=== PATIENT | female | born 1970 | race African-American/Black ===

== ENCOUNTER 2017-02-16 19:13 | Emergency (ER) | payer OTHER ==
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
[2017-02-16 19:24] VITALS: BP 135/81; PULSE 56; TEMP 98.5; BMI 38.7
[2017-02-16] MEDS ORDERED: ACETAMINOPHEN 325 MG TABLET (FP) PO ONE (19:53)
[2017-02-16] MEDS ORDERED: ACETAMINOPHEN 325 MG TABLET (FP) ONE (20:04)
[2017-02-16 20:08] LABS: URINE APPEARANCE Clear; URINE BILIRUBIN Negative (NEGATIVE); URINE GLUCOSE (UA) Negative (NEGATIVE); URINE KETONE 1+ (NEGATIVE); URINE LEUK ESTERASE Negative (NEGATIVE); URINE NITRITE Negative (NEGATIVE); URINE PROTEIN Negative (NEGATIVE); URINE UROBILINOGEN 0.2 (0.2-1.0)
[2017-02-16 20:14] LABS: URINE BLOOD Trace-intact (NEGATIVE); URINE COLOR YELLOW
[2017-02-16 20:23] LABS: URINE BACTERIA FEW /hpf (NEGATIVE)
[2017-02-16 20:34] LABS: INR 1.14 (0.82-1.09); PROTHROMBIN TIME (PATIENT) 12.7 SEC (10.2-13.0)
[2017-02-16 20:46] LABS: BASOPHIL 0.5 % (0-2.0); EOSINOPHIL 2.1 % (0-4.5); MCH 29.1 pg (25.7-33.7); MCHC 33.3 g/dl (32.0-36.0); MEAN CELL VOLUME 87.4 fl (80-96); MEAN PLT VOLUME 8.9 fl (7.5-11.1); NEUTROPHILS 45.7 % (42.8-82.8); PLATELET COUNT 222 K/MM3 (134-434); RDW 13.5 % (11.6-15.6); WHITE BLOOD COUNT 7.6 K/mm3 (4.0-10.8)
[2017-02-16 20:50] LABS: ALBUMIN 4.4 g/dl (3.5-5.0); ALK PHOS 55 U/L (32-92); ANION GAP 6 (8-16); BILIRUBIN,TOTAL 0.4 mg/dl (0.2-1.0); CALCIUM 8.9 mg/dl (8.4-10.2); CO2 25 mmol/L (22-28); CPK 272 IU/L (26-192); CREATININE 0.6 mg/dl (0.6-1.3); GLUCOSE,RANDOM 79 mg/dl (74-106); SGOT/AST 29 U/L (10-42); SGPT/ALT 25 U/L (10-40); TOT PROT 7.2 g/dl (6.4-8.3)
[2017-02-16 21:00] LABS: TROPONIN I (DFP) < 0.03 ng/ml (0.03-0.50)
[2017-02-16] MEDS ORDERED: LORATADINE 10 MG TABLET PO ONE (21:52)
[2017-02-16] MEDS ORDERED: LORATADINE 10 MG TABLET ONE (22:01)
--- NOTE | 2017-02-17 13:01 | EKG ---
Test Reason : Blood Pressure : / mmHG Vent. Rate : 057 BPM Atrial Rate : 057 BPM P-R Int : 150 ms QRS Dur : 090 ms QT Int : 508 ms P-R-T Axes : 060 029 048 degrees QTc Int : 494 ms SINUS BRADYCARDIA NONSPECIFIC T WAVE ABNORMALITY PROLONGED QT ABNORMAL ECG NO PREVIOUS ECGS AVAILABLE Confirmed by PONCHO OCHOA MD ([id number]) on 02/17/2017 1:01:19 PM Referred By: LISA MUKHERJEE Confirmed By:PONCHO OCHOA MD
== END 2017-02-16 22:12 | disposition home or self-care (01) ==
LOC: FER 19:13
DX: G43.809 Other migraine, not intractable, without status migrainosus (principal); F41.9 Anxiety disorder, unspecified; E04.2 Nontoxic multinodular goiter; E05.90 Thyrotoxicosis, unspecified without thyrotoxic crisis or storm
CPT/HCPCS: 36415; 80053; 81003; 81015; 82550; 82553; 84484; 84703; 85025; 85610; 93005; 99281-25

== ENCOUNTER → 2017-12-19 | Day surgery (SDC) | payer OTHER ==
--- NOTE | 2017-12-22 19:10 | OP ---
DATE OF OPERATION: 12/19/2017 PREOPERATIVE DIAGNOSIS: Right breast mass 1 o'clock 1 cm from the nipple and right breast mass 1 o'clock 4 cm from the nipple. PROCEDURE: Right ultrasound guided core biopsies with clip placements. ANESTHESIA: Local. ATTENDING SURGEON: Choco Valentin MD ESTIMATED BLOOD LOSS: Minimal. COMPLICATIONS: None. DESCRIPTION OF PROCEDURE: The patient was made aware of the risks and benefits of the surgery and consented. She was placed in a supine position, and under sterile conditions and 1% lidocaine for local anesthesia, a small kelly was made in the skin. The right 1 o'clock lesion 1 cm from the nipple was approached first. Using a 10-gauge suction biopsy via the superolateral approach under ultrasound guidance, multiple cores were obtained and submitted to Pathology. Likewise, under ultrasound guidance, a bow tie clip was placed into the biopsy region. Steri-Strips and a sterile bandage was applied. Next, the right 1 o'clock 4 cm from the nipple lesion was approached. Under sterile conditions with 1% lidocaine for local anesthesia, a small kelly was made in the skin. Using a 10-gauge suction biopsy via the superolateral approach under ultrasound guidance, multiple cores were obtained and submitted to Pathology. Likewise, under ultrasound guidance, a U-shaped clip was placed into the biopsy region. Steri-Strips and sterile dressing was then applied. Manual pressure was applied for hemostasis, and the patient having tolerated the procedure well was discharged home. We will call her with results. CHOCO VALENTIN M.D. [id number]
== END | disposition home or self-care (01) ==
LOC: FRADUS-SUR 12:25
PROVIDERS: ATTEND Surgery Surgical Oncology
PROC: 0HBT3ZX Excision of Right Breast, Percutaneous Approach, Diagnostic (ICD-10-PCS; principal; 2017-12-19)
DX: D05.11 Intraductal carcinoma in situ of right breast (principal); N64.1 Fat necrosis of breast; N64.89 Other specified disorders of breast; N63.12 Unspecified lump in the right breast, upper inner quadrant; R92.1 Mammographic calcification found on diagnostic imaging of breast
CPT/HCPCS: 19083; 19084; 77065-TC; 87899; 88305-TC; 88341-TC; 88342-TC; A4648

== ENCOUNTER → 2017-12-30 | Day surgery (SDC) | payer OTHER ==
--- NOTE | 2017-12-31 00:20 | OP ---
DATE OF OPERATION: 12/30/2017 PREOPERATIVE DIAGNOSIS: Right axillary adenopathy. POSTOPERATIVE DIAGNOSIS: Right axillary adenopathy. PROCEDURE: Right axillary lymph node, ultrasound guided core biopsy with clip placement. ANESTHESIA: Local. ATTENDING SURGEON: Choco Valentin M.D. ESTIMATED BLOOD LOSS: Minimal. COMPLICATIONS: None. DESCRIPTION OF PROCEDURE: Patient was made aware of the risks and benefits of the procedure and consented. She was placed in the supine position under sterile conditions with 1% lidocaine for local anesthesia. A small kelly was made on the skin. Using a 13-gauge suction biopsy device via inferolateral approach, multiple cores were obtained and submitted to pathology. Likewise under ultrasound guidance, a clip was placed into the biopsy region. Well tolerated by patient. Steri-Strip and sterile bandage was applied. We will contact her with the results. CHOCO VALENTIN M.D. [id number]
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
--- NOTE | 2018-01-02 14:26 | PATH ---
Surgical Pathology Report Patient Name: ANNELISE PUTNAM [facility]. Rec. #: [id number] /Age/Gender: 1970 (Age: 47) / F Account: [id number] Location: [facility] Taken: 12/30/2017 Received: 12/30/2017 Reported: 01/02/2018 Physicians: Tito Burton M.D. Specimen(s) Received RIGHT AXILLARY NODE CORE BIOPSY Clinical History Axillary lymph node Final Diagnosis AXILLARY LYMPH NODE, RIGHT, CORE BIOPSY: FRAGMENTS OF LYMPH NODE WITH MILD FOLLICULAR AND PARACORTICAL HYPERPLASIA. NO DETECTABLE INVOLVEMENT BY LYMPHOMA. NO EVIDENCE OF METASTATIC CARCINOMA. SEE COMMENT. Comment: Histologic sections show fragments of fibroadipose and lymphoid tissue with preserved architecture. Follicles with germinal center formation are present. Significant cytologic atypia is not seen. Immunostains demonstrate normal distribution of B-cells and T-cells; aberrant immunoprofiles are not seen. History of DCIS noted ([id number]). This case was sent to Dr. Cole Okeefe from [facility], [place], [place] ([id number]) the diagnosis above reflects his opinion. Immunostains performed: CD20...B-cells positive PAX-5...B-cells positive CD3...T-cells positive CD5...T-cells positive CD10..Germinal centers positive BCL-6..Germinal centers positive BCL-2..Germinal centers negative BCL-1..Negative [place] (LIZETH)..Subset of plasma cells positive Lambda (LIZETH)..Subset of plasma cells positive AE1/AE3...Negative CAM 5.2..Negative LAWRENCE..Negative MUM-1..Plasma cells and subset of B-cells positive See [facility] report for additional details ([id number]). Electronically Signed Cristin Mills M.D. Gross Description Received in formalin labeled "right axillary lymph node" are 4 hurtado-yellow, cylindrical portions of fibroadipose tissue ranging from 0.5-0.8 cm in length and averaging 0.3 cm diameter. The specimens are submitted in toto in one cassette. Total formalin fixation time: Between 6-7 hours. SErik/12/30/2017 alpa/12/30/2017
== END | disposition home or self-care (01) ==
LOC: FRADUS-SUR 11:38
PROVIDERS: ATTEND Surgery Surgical Oncology
PROC: 07B53ZX Excision of Right Axillary Lymphatic, Percutaneous Approach, Diagnostic (ICD-10-PCS; principal; 2017-12-30)
PROC: BH47ZZZ Ultrasonography of Upper Extremity (ICD-10-PCS; 2017-12-30)
DX: R59.9 Enlarged lymph nodes, unspecified (principal)
CPT/HCPCS: 38505; 76942-TC; 87899; 88305-TC; A4648

== ENCOUNTER 2018-01-20 11:00 | Inpatient (IN) | payer OTHER ==
[2018-01-09 15:05] VITALS: BMI 35.5
--- NOTE | 2018-01-19 09:28 | HP ---
Admitting History and Physical - Primary Care Physician PCP: dilip - Admission Chief Complaint: right breast cancer History of Present Illness: Patient is a 47 yo female who was noted to have calcifications in the right breast extending over an area of at least 8 cm centrally. Patient underwent an US which showed a hypoechoic mass vs cystic mass at one o'clock. Patient underwent an US guided core bx which was positive for DCIS. Patient had an MRI which was c/w known cancer as well as a suspicious right axillary lymph node. Biopsy of the lymph node was negative for malignancy. The patient is now presenting for bilateral mastectomy with reconstruction and right snbx. l History Source: Patient - Past Medical History ...LMP Comment: S/P MARIO Endocrine: Yes: Hyperthyroidism - Smoking History Smoking history: Never smoked Have you smoked in the past 12 months: No Aproximately how many cigarettes per day: 0 - Alcohol/Substance Use Hx Alcohol Use: Yes (SOCIAL) Home Medications - Allergies Allergies/Adverse Reactions: Allergies Allergy/AdvReac Type Severity Reaction Status Date / Time citalopram hydrobromide AdvReac Intermediate Weight gain Verified 02/16/17 19:17 [From Celexa] - Home Medications Home Medications: Ambulatory Orders Methimazole 5 mg PO DAILY #0 08/12/13 Family Disease History - Family Disease History Family History: Unremarkable Review of Systems - Review of Systems Constitutional: reports: No Symptoms Cardiovascular: reports: No Symptoms Respiratory: reports: No Symptoms Physical Examination Constitutional: Yes: Well Nourished, Calm Breast(s): Yes: Other (large ptotic double D-cup breasts with slight retraction on the medial aspect of the right nipple areolar complex. Right 1 oclock slight nodularity around the periareolar 1 oclock region of the right breast. No suspicious adenopathy noted bilaterally) Problem List - Problems (1) Breast cancer, right breast Code(s): C50.911 - MALIGNANT NEOPLASM OF UNSP SITE OF RIGHT FEMALE BREAST Qualifiers: Breast location: overlapping sites of breast Assessment/Plan Bilateral mastectomy with right sentinel node biopsy, lymphoscintogram, possible axillary node dissection, reconstruction
[2018-01-20] MEDS ORDERED: ceFAZolin SODIUM 1 GM VIAL ONE ×2 (13:52→14:42)
[2018-01-20] MEDS ORDERED: GENTAMICIN SO4 80 MG/2 ML VIAL ONE (13:52)
[2018-01-20] MEDS ORDERED: ISOSULFAN BLUE 10 MG/ML VIAL SQ ONE (13:53)
[2018-01-20] MEDS ORDERED: fentaNYL CITRATE 250 MCG/5 ML VIAL ONE (14:04)
[2018-01-20] MEDS ORDERED: MIDAZOLAM HCL 2 MG/2 ML SINGLE DOSE VIAL ONE (14:04)
[2018-01-20] MEDS ORDERED: ROCURONIUM BROMIDE 50 MG/5 ML VIAL ONE ×2 (14:04→15:29)
[2018-01-20] MEDS ORDERED: SUCCINYLCHOLINE CHLORIDE 200 MG/10 ML VIAL ONE (14:04)
[2018-01-20] MEDS ORDERED: PROPOFOL 20 ML ONE (14:04)
[2018-01-20] MEDS ORDERED: DEXAMETHASONE SOD PHOSPHATE 4 MG/1 ML VIAL ONE (14:05)
[2018-01-20] MEDS ORDERED: LIDOCAINE HCL/PF 2% SDV 5ML VIAL ONE (14:05)
[2018-01-20] MEDS ORDERED: ONDANSETRON 4 MG/2 ML VIAL ONE ×2 (14:05→17:25)
[2018-01-20] MEDS ORDERED: BUPIVACAINE LIPOSOME/PF (EXPAREL) 266 MG/20 ML VIAL ONE (14:46)
[2018-01-20] MEDS ORDERED: ePHEDrine SULFATE 50 MG/1 ML AMPULE ONE (15:16)
[2018-01-20] MEDS ORDERED: oxyCODONE HCL 5 MG TABLET PO PRN ×3 (16:54→17:21)
[2018-01-20] MEDS ORDERED: GLYCOPYRROLATE 0.2 MG/1 ML VIAL ONE (17:14)
[2018-01-20] MEDS ORDERED: NEOSTIGMINE METHYLSULFATE 0.5 MG/ML - 10 ML MDV ONE (17:14)
[2018-01-20] MEDS ORDERED: ONDANSETRON 4 MG/2 ML VIAL IVPUSH PRN (17:21)
[2018-01-20] MEDS: ONDANSETRON 4 MG/2 ML VIAL IVPUSH PRN (17:50)
[2018-01-20] MEDS ORDERED: PROMETHAZINE HCL 25 MG/1 ML VIAL IVPUSH ONE (18:07)
--- NOTE | 2018-01-20 19:36 | SURG ---
Surgery Process Safety Engineer Note Process Safety Engineer: Jm Torres PA-C Date of Service: 01/20/18 Diagnosis: Right breast DCIS Procedure: Bilateral mastectomy, right sentinel lymph node biopsy and reconstruction with tissue expanders I was present for the entirety of the operative procedure. For further detail, please refer to operative report. Visit type - Case Type Case Type: Scheduled - New patient This patient is new to me today: Yes Date on this admission: 01/20/18
--- NOTE | 2018-01-20 19:54 | OP ---
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 PROCEDURE: Bilateral total mastectomy with right axillary sentinel lymph node biopsy and bilateral AirXpanders reconstruction. ANESTHESIA: General endotracheal anesthesia. PRIMARY SURGEON: Ernst Goodwin MD FLASH WELDING MACHINE OPERATOR: STEPHEN Mcfarland Primary surgeon for the bilateral AirXpanders subpectoral reconstruction is Dr. Ernst Wilde. There were no complications. Briefly, the patient is a 47-year-old, G3, P3, premenopausal female of /[place] descent. She underwent a recent mammography on December 02, 2017, showing highly-suspicious central pleomorphic calcifications in the right breast extending over an area of 8 cm. She underwent stereotactic core biopsies in the right breast, 2 separate areas at the 1 o'clock region, 1 cm and 4 cm from the nipple. Both came back with intermediate to high-grade DCIS, which is ER/ND strongly positive. She underwent an MRI on December 25, 2017, showing extensive enhancement measuring at least 10 cm in length associated with these calcifications on mammography. The patient was advised on undergoing a mastectomy on the right side and chose to have prophylactic mastectomy on the left. She was seen by Plastic Surgery and personal secretary reconstruction was advised. She was told of the use of AirXpanders in her case. She was brought in for the procedure at [facility] on January 20, 2018. She first underwent a lymphoscintigraphy at [facility] and was brought to the [facility] holding area. In the holding area, site verification was made and informed consent was obtained. She was marked preoperatively by the plastic surgeon. She was brought in to the operating room and laid on the OR table in a supine position. Venodynes were placed on the lower extremities. She received 2 g of Ancef prior to incision. She underwent general endotracheal anesthesia. Both breasts were sterilely prepped and draped in the usual fashion and a timeout was performed. The right axillary sentinel lymph node biopsy was first performed. Incision was made just below the hair-bearing area of the right axilla. We did inject 3 mL of Lymphazurin blue around the periareolar right breast nipple-areolar complex prior to the incision. We did see blue lymphatics coursing through a blue hot lymph node in the level 1 region of the right axilla with a 10-second gamma count of 2420. Background count after removal of this node was 166. No other blue or not nodes were found after removal of this node, and frozen section came back negative, so no further nodes were removed. At this point, the right mastectomy was performed using an elliptical incision encompassing the entire nipple-areolar complex. A reduction skin-sparing mastectomy was performed. Skin flaps were raised superiorly to the level of the clavicle, medially to the level of the sternum, laterally to the level of the latissimus, and inferiorly below the level of the inframammary fold. The breast was taken down off the pectoralis major muscle using electrocautery from medial to lateral, completely removed intact. It was oriented with a long lateral and short superior suture and weighed to allow for appropriate cosmetic result. X-ray of the specimen showed removal of the 2 clips and all of the calcification. A separate anterior margin was taken on the superior flap, with the suture margin in biopsy cavity side. Hemostasis was achieved and the wound was copiously irrigated with warm sterile saline. At this point, the left mastectomy was performed prophylactically. Separate instruments were used, and again a skin-sparing reduction mastectomy was performed, encompassing the entire nipple-areolar complex through an elliptical pattern. Skin flaps were raised using the PEAK radiofrequency device, superiorly to the level of the clavicle, medially to the level of the sternum, laterally to the level of the latissimus, and inferiorly below the level of the inframammary fold. The breast was taken down off the pectoralis major muscle, from medial to lateral, completely removed intact. It was oriented with a long lateral and short superior suture and weighed to allow for appropriate cosmetic result. Hemostasis was achieved and the wound was copiously irrigated with warm sterile saline. Both breasts were sent down to Pathology in formalin as left and right breast. At this point, Dr. Wilde became the primary surgeon, performing bilateral personal secretary reconstructions in the subpectoral location. AlloDerm was sutured into the inferolateral aspects of both pectoralis major muscles to allow for the personal secretary reconstruction. AirXpander implants were placed. Two drains will be placed around each implant, brought out through separate stab incisions on the lateral skin flaps and secured in place using 3-0 nylon suture. Exparel local anesthesia was given into the chest wall muscles of both pectoralis major muscles to allow for postoperative pain control. All wounds will be closed by Plastic Surgery using interrupted 3-0 PDS suture and a running 4-0 subcuticular PDS suture. Mastisol and Steri-Strips will be applied over the wound, and she will be extubated and recovered in the post-anesthesia care unit and admitted postoperatively for pain and wound management. Again, all sponge and needle counts were correct at the end of the case. Estimated blood loss was about 100 mL. She was hemodynamically stable throughout. ERNST GOODWIN M.D. MARY [id number]
[2018-01-20] MEDS: CEFAZOLIN 1 GM/D5W 1 GM/50 ML BAG IVPB SCH (20:22)
[2018-01-20] MEDS: oxyCODONE HCL 5 MG TABLET PO PRN (20:42)
[2018-01-20] MEDS: ACETAMINOPHEN 325 MG TABLET (FP) PO PRN (20:42)
[2018-01-20] MEDS ORDERED: ZOLPIDEM TARTRATE 5 MG TABLET PO PRN (22:00)
[2018-01-21] MEDS: CEFAZOLIN 1 GM/D5W 1 GM/50 ML BAG IVPB SCH ×4 (03:18→21:42)
[2018-01-21] MEDS: oxyCODONE HCL 5 MG TABLET PO PRN ×3 (03:18→13:16)
[2018-01-21] MEDS: ACETAMINOPHEN 325 MG TABLET (FP) PO PRN ×2 (03:19→13:17)
[2018-01-21 08:11] LABS: HEMATOCRIT 32.3 % (32.4-45.2); HEMOGLOBIN 10.6 GM/dl (10.7-15.3); MCH 28.4 pg (25.7-33.7); MCHC 32.9 g/dl (32.0-36.0); MEAN CELL VOLUME 86.3 fl (80-96); PLATELET COUNT 209 K/MM3 (134-434); RBC 3.74 M/mm3 (3.60-5.2); RDW 15.4 % (11.6-15.6); WHITE BLOOD COUNT 11.2 K/mm3 (4.0-10.8)
[2018-01-21] MEDS: HEPARIN NA (PORCINE) 5,000 UNITS/ML 1ML VIAL SQ SCH ×2 (08:27→21:42)
[2018-01-21] MEDS: ONDANSETRON 4 MG/2 ML VIAL IVPUSH PRN (08:27)
--- NOTE | 2018-01-21 08:47 | PN ---
Progress Note, Physician Chief Complaint: Right breast cancer S/P bilateral total mastectomies right sentenel node biopsy coal loader and alloderm reconstruction History of Present Illness: patient is OOB eating , spirometry, pain managed with oxycodone,tylenol prn - Current Medication List Current Medications: Active Medications Acetaminophen (Tylenol -) 650 mg PO Q4H PRN PRN Reason: PAIN LEVEL 1 - 3 Last Admin: 01/21/18 03:19 Dose: 650 mg Heparin Sodium (Porcine) (Heparin -) 5,000 unit SQ BID@0800,2000 [facility] Last Admin: 01/21/18 08:27 Dose: 5,000 unit Cefazolin Sodium (Ancef 1 Gm Premixed Ivpb -) 1 gm in 50 mls @ 100 mls/hr IVPB Q6H-IV [facility] Stop: 01/27/18 20:59 Last Admin: 01/21/18 08:27 Dose: 100 mls/hr Dextrose/Sodium Chloride (D5-1/2ns -) 1,000 mls @ 100 mls/hr IV ASDIR [facility] Lactated Ringer's (Lactated Ringers Solution) 1,000 mls @ 75 mls/hr IV ASDIR [facility] Methimazole (Tapazole -) 5 mg PO DAILY [facility] Ondansetron HCl (Zofran Injection) 4 mg IVPUSH Q6H PRN PRN Reason: NAUSEA AND/OR VOMITING Last Admin: 01/21/18 08:27 Dose: 4 mg Oxycodone HCl (Roxicodone -) 5 mg PO Q4H PRN PRN Reason: PAIN LEVEL 4 - 6 Oxycodone HCl (Roxicodone -) 10 mg PO Q4H PRN PRN Reason: PAIN LEVEL 7-10 Last Admin: 01/21/18 03:18 Dose: 10 mg Zolpidem Tartrate (Ambien -) 5 mg PO HS PRN PRN Reason: Insomnia - Objective Vital Signs: Vital Signs Temperature 99.2 F 01/21/18 06:00 Pulse Rate 72 01/21/18 06:00 Respiratory Rate 18 01/21/18 06:00 Blood Pressure 120/52 L 01/21/18 06:00 O2 Sat by Pulse Oximetry (%) 98 01/21/18 06:00 Constitutional: Yes: No Distress Breast(s): Yes: Other (Bilateral flaps viable no echymosis,incisions intact with steristrips EDUARDO drains functioning, dressings changed) Labs: CBC, BMP 01/21/18 07:41 Problem List - Problems (1) Breast cancer, right breast Code(s): C50.911 - MALIGNANT NEOPLASM OF UNSP SITE OF RIGHT FEMALE BREAST Qualifiers: Breast location: overlapping sites of breast Patient sex: female Assessment/Plan continue IV antibiotics oxycodone ,tylenol prn spirometry SCD hepatin SQ VNS to be arranged
[2018-01-21] MEDS: METHIMAZOLE 5 MG TABLET (FP) PO SCH (09:39)
--- NOTE | 2018-01-21 10:27 | PN ---
Progress Note (short form) - Note Progress Note: 47F POD1 s/p bilateral mastectomy with reconstruction under GA-ETT. Pt s/o moderate pain, and also of nausea. Pt denies any anesthetic complications. Continue current regimen.
[2018-01-21] MEDS: LACTATED RINGERS SOLUTION 1,000 ML IV SCH ×2 (10:59→17:56)
[2018-01-21] MEDS: DEXTROSE 5%-0.45% SALINE 1,000 ML IV SCH ×2 (10:59→17:56)
[2018-01-21] MEDS ORDERED: diazePAM 2 MG TABLET PO PRN (17:22)
--- NOTE | 2018-01-21 18:07 | PN ---
Progress Note (short form) - Note Progress Note: POD#1 Pt with slight nausea/no emesis. Had some tingling in her RUE which has improved. OOB and ambulating in the hallways. Vital Signs Period Temp Pulse Resp BP Sys/Cueto Pulse Ox Last 24 Hr 97.7 F-99.2 F 62-76 16-18 112-126/51-63 96-100 EDUARDO-left-75 ml serosangrneous left chest-105ml serosangrenous Right-180 sangrenous and eight chest-120ml sangrenous Chest: steri-strips c/d/i. Skin flaps with good capillary refill b/l and warm to touch. CBC, BMP 01/21/ 07:41 A/P: 47 yo female s/p b/l mastectomy with reconstruction tissue expanders Continue diet as tolerated Added Valium for pain relief/muscle spasm OOB ambulate and Incentive spirometer Heparin SQ for DVT ppx IV abx D/w Dr. Wilde
[2018-01-22] MEDS: CEFAZOLIN 1 GM/D5W 1 GM/50 ML BAG IVPB SCH ×3 (03:27→14:58)
[2018-01-22] MEDS: oxyCODONE HCL 5 MG TABLET PO PRN ×2 (05:07→20:08)
--- NOTE | 2018-01-22 07:00 | PN ---
Progress Note (short form) - Note Progress Note: POD #2 Alert. Supine with HOB at 30 degrees. States she had a hard time sleeping last night 2/2 pain. C/o RUE tingling yesterday...resolved. She is oob and ambulating hallways unassisted. Voiding spontaneously. Tolerating PO diet. Denies n/v/f/c, CP or SOB. Last Vital Signs Temp Pulse Resp BP Pulse Ox 98.3 F 62 16 115/50 L 98 18 02:00 01/22/18 02:00 01/22/18 02:00 01/22/18 02:00 01/21/18 14:14 Gen: alert. nad Chest: Steri strips intact. No hematoma. Flaps viable as evidenced by good cap refill, warm. EDUARDO output --> Lt 85 & 115 (serous), Rt 140 & 175 (serous) LE: SCDs bilat. Soft. NT. No edema. Problem List - Problems (1) Breast cancer, right breast Assessment/Plan: POD #2 s/p bilateral mastectomies, right sentinel LN biopsy with tissue vehicle maintenance supervisor reconstruction. Cont diet as tolerated Valium for pain relief/muscle spasm OOB ambulate Incentive spirometer Heparin SQ for DVT ppx IV abx Monitor/record drain output Above plan discussed with Dr. Wilde who agrees. Code(s): C50.911 - MALIGNANT NEOPLASM OF UNSP SITE OF RIGHT FEMALE BREAST Qualifiers: Breast location: overlapping sites of breast Patient sex: female
[2018-01-22] MEDS: HEPARIN NA (PORCINE) 5,000 UNITS/ML 1ML VIAL SQ SCH ×2 (08:28→20:09)
[2018-01-22] MEDS: METHIMAZOLE 5 MG TABLET (FP) PO SCH (09:21)
--- NOTE | 2018-01-22 10:28 | PN ---
Progress Note, Physician Chief Complaint: Right breast cancer S/P bilateral total mastectomies right sentenel node biopsy alloderm catcher helper reconstruction POD #2 History of Present Illness: patient is OOb eating, no nausea or vomiting, pain controlled with oxycodone , valium,tylenol prn,plan for discharge tomorrow with VNS - Current Medication List Current Medications: Active Medications Acetaminophen (Tylenol -) 650 mg PO Q4H PRN PRN Reason: PAIN LEVEL 1 - 3 Last Admin: 01/21/18 13:17 Dose: 650 mg Diazepam (Valium -) 2 mg PO Q8H PRN PRN Reason: MUSCLE SPASMS Last Admin: 01/21/18 18:29 Dose: 2 mg Heparin Sodium (Porcine) (Heparin -) 5,000 unit SQ BID@0800,2000 [facility] Last Admin: 01/22/18 08:28 Dose: 5,000 unit Cefazolin Sodium (Ancef 1 Gm Premixed Ivpb -) 1 gm in 50 mls @ 100 mls/hr IVPB Q6H-IV [facility] Stop: 01/27/18 20:59 Last Admin: 01/22/18 09:21 Dose: 100 mls/hr Dextrose/Sodium Chloride (D5-1/2ns -) 1,000 mls @ 100 mls/hr IV ASDIR [facility] Last Admin: 01/21/18 17:56 Dose: Not Given Lactated Ringer's (Lactated Ringers Solution) 1,000 mls @ 75 mls/hr IV ASDIR [facility] Last Admin: 01/21/18 17:56 Dose: Not Given Methimazole (Tapazole -) 5 mg PO DAILY [facility] Last Admin: 01/22/18 09:21 Dose: 5 mg Ondansetron HCl (Zofran Injection) 4 mg IVPUSH Q6H PRN PRN Reason: NAUSEA AND/OR VOMITING Last Admin: 01/21/18 08:27 Dose: 4 mg Oxycodone HCl (Roxicodone -) 5 mg PO Q4H PRN PRN Reason: PAIN LEVEL 4 - 6 Oxycodone HCl (Roxicodone -) 10 mg PO Q4H PRN PRN Reason: PAIN LEVEL 7-10 Last Admin: 01/22/18 05:07 Dose: 10 mg Zolpidem Tartrate (Ambien -) 5 mg PO HS PRN PRN Reason: Insomnia - Objective Vital Signs: Vital Signs Temperature 99.8 F H 01/22/18 06:00 Pulse Rate 72 01/22/18 06:00 Respiratory Rate 19 01/22/18 06:00 Blood Pressure 108/56 L 01/22/18 06:00 O2 Sat by Pulse Oximetry (%) 99 01/22/18 07:07 Constitutional: Yes: No Distress Breast(s): Yes: Other (Bilateral flaps viable and warm, steristrips in place , no signs of hematoma or infection EDUARDO drains funtioning well,dressing changed) Labs: CBC, BMP 01/21/18 07:41 Problem List - Problems (1) Breast cancer, right breast Code(s): C50.911 - MALIGNANT NEOPLASM OF UNSP SITE OF RIGHT FEMALE BREAST Qualifiers: Breast location: overlapping sites of breast Patient sex: female Assessment/Plan cont Iv antibiotics SCD, heparin SQ ambulation,spirometry oxycocone ,valium,tylenol prn pain Visiting nurse service
[2018-01-22] MEDS ORDERED: MAGNESIUM HYDROX 2400MG/30ML ORAL SUSPENSION 30 ML CUP PO PRN (10:57)
[2018-01-22] MEDS: DEXTROSE 5%-0.45% SALINE 1,000 ML IV SCH (16:29)
[2018-01-22] MEDS: LACTATED RINGERS SOLUTION 1,000 ML IV SCH (16:29)
[2018-01-22] MEDS: CEPHALEXIN MONOHYDRATE 500 MG CAPSULE (UD) PO SCH (21:57)
[2018-01-23] MEDS: oxyCODONE HCL 5 MG TABLET PO PRN ×2 (02:45→16:23)
[2018-01-23] MEDS ORDERED: METHIMAZOLE 5 MG TABLET (FP) PO SCH (07:00)
[2018-01-23] MEDS: HEPARIN NA (PORCINE) 5,000 UNITS/ML 1ML VIAL SQ SCH (08:19)
--- NOTE | 2018-01-23 09:27 | PN ---
Progress Note, Physician Chief Complaint: Right breast cancer S/P Bilateral total mastectomies right sentenel node biopsy alloderm air expanders History of Present Illness: patient is OOb eating , still breast tenderness and tenseness bilaterally and she has air expanders in place, discussed with Dr Goodwin and Dr Wilde - Current Medication List Current Medications: Active Medications Acetaminophen (Tylenol -) 650 mg PO Q4H PRN PRN Reason: PAIN LEVEL 1 - 3 Last Admin: 01/21/18 13:17 Dose: 650 mg Cephalexin HCl (Keflex -) 500 mg PO BID [facility] Last Admin: 01/22/18 21:57 Dose: 500 mg Diazepam (Valium -) 2 mg PO Q8H PRN PRN Reason: MUSCLE SPASMS Last Admin: 01/21/18 18:29 Dose: 2 mg Heparin Sodium (Porcine) (Heparin -) 5,000 unit SQ BID@0800,2000 [facility] Last Admin: 01/23/18 08:19 Dose: 5,000 unit Dextrose/Sodium Chloride (D5-1/2ns -) 1,000 mls @ 100 mls/hr IV ASDIR [facility] Last Admin: 01/22/18 16:29 Dose: Not Given Lactated Ringer's (Lactated Ringers Solution) 1,000 mls @ 75 mls/hr IV ASDIR [facility] Last Admin: 01/22/18 16:29 Dose: Not Given Magnesium Hydroxide (Milk Of Magnesia -) 30 ml PO Q8H PRN PRN Reason: INDIGESTION Methimazole (Tapazole -) 5 mg PO DAILY@0700 [facility] Last Admin: 01/23/18 06:34 Dose: 5 mg Ondansetron HCl (Zofran Injection) 4 mg IVPUSH Q6H PRN PRN Reason: NAUSEA AND/OR VOMITING Last Admin: 01/21/18 08:27 Dose: 4 mg Oxycodone HCl (Roxicodone -) 5 mg PO Q4H PRN PRN Reason: PAIN LEVEL 4 - 6 Oxycodone HCl (Roxicodone -) 10 mg PO Q4H PRN PRN Reason: PAIN LEVEL 7-10 Last Admin: 01/23/18 02:45 Dose: 10 mg Zolpidem Tartrate (Ambien -) 5 mg PO HS PRN PRN Reason: Insomnia - Objective Vital Signs: Vital Signs Temperature 99.1 F 11/02/18 06:00 Pulse Rate 63 01/23/18 06:00 Respiratory Rate 18 01/23/18 06:00 Blood Pressure 123/56 L 01/23/18 06:00 O2 Sat by Pulse Oximetry (%) 97 01/23/18 06:00 Constitutional: Yes: No Distress Breast(s): Yes: Other (Bilateral viable warm flaps incision intact with steristrips no signs of infection , Bilateral tenseness and tenderness which can be due to trim crew supervisor cartrage according to Dr Wilde, no echymosis no signs of expanding hematoma) Labs: CBC, BMP 01/21/18 07:41 Problem List - Problems (1) Breast cancer, right breast Code(s): C50.911 - MALIGNANT NEOPLASM OF UNSP SITE OF RIGHT FEMALE BREAST Qualifiers: Breast location: overlapping sites of breast Patient sex: female Assessment/Plan continue oxycodone ,tylenol, valium prn pain SCD, heparin SQ EDUARDO Training VNS Patient is ready for discharge today per Dr Wilde and Buddy and will follow up next week
[2018-01-23] MEDS: CEPHALEXIN MONOHYDRATE 500 MG CAPSULE (UD) PO SCH (09:54)
[2018-01-23] MEDS: ACETAMINOPHEN 325 MG TABLET (FP) PO PRN ×2 (09:55→16:23)
[2018-01-23 14:23] VITALS: BP 107/48; PULSE 66; TEMP 99
--- NOTE | 2018-01-27 14:20 | PATH ---
Surgical Pathology Report Patient Name: ANNELISE PUTNAM Med. Rec. #: [id number] /Age/Gender: 1970 (Age: 47) / F Account: [id number] Location: [facility] Taken: 01/20/2018 Received: 01/20/2018 Reported: 01/27/2018 Physicians: Jamie Goodwin M.D. Specimen(s) Received A: RIGHT AXILLARY SENTINEL LYMPH NODE #1 (FS) B: LEFT MASTECTOMY C: RIGHT MASTECTOMY D: RIGHT BREAST ANTERIOR MARGIN Clinical History Extensive R breast DCIS, mastectomy Left prophylactic mastectomy Intraoperative Consult Diagnosis Right axillary sentinel node #1, excision (FS): Negative for malignancy. One benign lymph node (0/1). Srinivas Vega M.D. 01/20/18. Final Diagnosis A. LYMPH NODE, RIGHT AXILLARY SENTINEL #1, EXCISION (FS): ONE LYMPH NODE, NEGATIVE FOR METASTATIC CARCINOMA (0/1). PRIOR BIOPSY SITE CHANGES ARE NOTED. B. BREAST, LEFT, TOTAL MASTECTOMY: BENIGN BREAST TISSUE. NIPPLE AND SKIN WITH NO PATHOLOGIC FINDINGS. C. BREAST, RIGHT, TOTAL MASTECTOMY: EXTENSIVE MULTIFOCAL AND MULTICENTRIC DUCTAL CARCINOMA IN SITU (DCIS), SOLID AND FOCALLY PAPILLARY TYPE, HIGH NUCLEAR GRADE WITH EXTENSIVE NECROSIS, ASSOCIATED CALCIFICATIONS AND LOBULAR EXTENSION. (SEE NOTE) DCIS IS PRESENT PREDOMINANTLY IN THE UPPER INNER QUADRANT (UIQ) AND FORMS A MASS SPANNING APPROXIMATELY 7.5 CM IN GREATEST DIMENSION (GROSS MEASUREMENT) AND IS PRESENT IN FOURTEEN OF TWENTY SLIDES (14/20). IN ADDITION FEW FOCI OF DCIS ARE PRESENT IN THE UPPER OUTER QUADRANT (UOQ) WELL IN THE LOWER INNER QUADRANT (LIQ) AND LOWER OUTER QUADRANT (LOQ). FEW FOCI OF DCIS ARE CLOSE TO (< 1MM) THE DEEP MARGIN. DCIS IS AT 5 MM FROM THE CLOSEST ANTERIOR SOFT TISSUE MARGIN. SEE ALSO SPECIMEN D FOR FINAL ANTERIOR MARGIN. NIPPLE AND SKIN ARE UNINVOLVED BY DCIS. PRIOR BIOPSY SITE CHANGES ARE PRESENT. PATHOLOGIC STAGE (pTNM):pTis (DCIS) pN0. SEE ALSO DCIS CASE SUMMARY BELOW. Note: Myoepithelial immunohistochemical markers (SMM-HC and p63 performed on block C5 at [facility]) demonstrate the presence of myoepithelial cells in the foci of DCIS with sclerosis and lobular extension. This finding supports the diagnosis. See also prior right breast biopsies ([id number]) and right axillary lymph node biopsy ([id number]). D. BREAST, RIGHT, ANTERIOR MARGIN, EXCISION: BENIGN FIBROFATTY TISSUE. Comments DCIS of the Breast: Surgical Pathology Cancer Case Summary (Based on AJCC TNM 8 th edition) Procedure _X_ Total mastectomy Specimen Laterality _X_ Right Size (Extent) of DCIS Estimated size (extent) of DCIS (greatest dimension using gross and microscopic evaluation): at least (millimeters): 75 mm (gross measurement) Number of blocks with DCIS: 14 Number of blocks examined: 24 (based on specimens C&D) Note: The size (extent) of DCIS is an estimation of the volume of breast tissue occupied by DCIS. Histologic Type _X_ Ductal carcinoma in situ Architectural Patterns _X_ Comedo _X_ Papillary _X_ Solid Nuclear Grade _X_ Grade III (high) Necrosis _X_ Present, central (expansive "comedo" necrosis) Margins _X_ Uninvolved by DCIS Distance from closest margin (millimeters): < 1 mm from deep margin Regional Lymph Nodes Number of Lymph Nodes with Macrometastases (>2 mm): 0 Number of Lymph Nodes with Micrometastases (>0.2 mm to 2 mm and/or >200 cells): 0 Number of Lymph Nodes with Isolated Tumor Cells (=0.2 mm and =200 cells): 0 Number of Lymph Nodes Examined: 1 Number of Mccormick Nodes Examined: 1 Pathologic Stage Classification (pTNM, AJCC 8th Edition) Primary Tumor (pT) _X_ pTis (DCIS): Ductal carcinoma in situ Regional Lymph Nodes (pN) (pN) : _X_ pN0 Microcalcifications _X_ Present in DCIS Biomarker Studies Results of ER and WA studies performed on or prior biopsy (1498) at [facility] are as follows: ER (clone [id number] mouse monoclonal antibody by [employer]ica): > 95 % nuclear staining with strong intensity (Positive). WA (clone16 mouse monoclonal antibody by [employer]) : ~85 % nuclear staining with moderate to strong intensity (Positive). Electronically Signed Natasha Jackson M.D. Gross Description A. Received fresh for intraoperative consultation labeled "right axillary sentinel node #1" is a pink hurtado nodular soft tissue consistent with a lymph node which measures 2.5 x 1.7 x 1 cm. The specimen is bisected and entirely submitted for frozen section. The frozen section residue is entirely submitted in 2 cassettes labelled FSA1 and FSA22. MLSZ/01/20/2018 B. Received in formalin, labeled "left breast" is a 21.5 x 18.7 x 9.5 cm left breast total mastectomy specimen, surmounted anteriorly by a 16.5 x 6.8 cm portion of nipple-bearing skin. A long suture designates the lateral aspect and a short suture indicates the superior aspect, per the surgeon. The anterior soft tissue margin is inked green and the deep margin is inked black. Sectioning reveals predominantly adipose tissue with rare white fibrous streaks and foci. Armored Machine Operator sections are submitted in fifteen cassettes as follows: 1, 2-nipple; 3-5-upper outer quadrant (UOQ); 6-8-lower outer quadrant (LOQ); 9-11-upper inner quadrant (UIQ); 12-14-lower inner quadrant (LIQ); 15-skin. C. Received in formalin, labeled "right breast" is a 22.5 x 20 x 10.5 cm right breast total mastectomy specimen, surmounted anteriorly by a 15.8 x 7.3 cm ellipse of nipple-bearing skin. . A long suture designates the lateral aspect and a short suture indicates the superior aspect, per the surgeon. The anterior soft tissue margin is inked green and the deep margin is inked black. Sectioning reveals a 7.5 x 5.5 x 3.5 cm area of hurtado fibrous to firm tissue in the upper inner quadrant (UIQ). Two metallic clips are identified within this tissue. The fibrous to firm tissue is at 1.0 cm from the closest anterior soft tissue margin and at 0.6 cm from the closest deep margin. The remainder of the breast parenchyma is comprised of predominantly of adipose tissue with rare white fibrous streaks and foci. Armored Machine Operator sections are submitted in twenty cassettes as follows: 1, 2-nipple; [id number] to firm tissue in UIQ (anterior margin in 3-7); 13-closest deep margin overlying fibrous to firm tissue in UIQ; 14,15- lower inner quadrant (LIQ); 16,17-upper outer quadrant (UOQ); 18,19-lower outer quadrant (LOQ); 20-skin. D. Received in formalin, labeled "right breast anterior margin" is a 5.6 x 4 x 0.8 cm portion of fibrofatty tissue with a suture designating the prior biopsy site. The margin opposite the suture is inked green. Sectioning reveals predominantly adipose tissue with rare white fibrous streaks and foci. Armored Machine Operator sections are submitted in four cassettes. sanml/01/20/2018
--- NOTE | 2018-01-29 09:53 | OP ---
PREOPERATIVE DIAGNOSES: 1. Bilateral acquired chest wall deformity status post bilateral mastectomy (611.89). 2. Personal history of genetic carcinoma. POSTOPERATIVE DIAGNOSES: 1. Bilateral acquired chest wall deformity status post bilateral mastectomy (611.89). 2. Personal history of genetic carcinoma. PROCEDURE: 1. Right immediate breast reconstruction utilizing immediate insertion of silicone breast implant and AlloDerm reconstruction. 2. Left immediate breast reconstruction utilizing immediate insertion of silicone breast implant and AlloDerm reconstruction. 3. Intravenous injection of indocyanine green dye and intraoperative diagnostic evaluation of non-coronary intraoperative fluorescein vascular angiography x 2. SURGEON: Dr. Yaneth Wilde CAN SOLDERER: ANESTHESIA: GENERAL ANESTHESIOLOGIST: OPERATIVE PROCEDURE IN DETAIL: The patient was taken to the operating room. After induction of general anesthesia in the supine position, both arms were extended and padded. Venodyne boots were placed. The entire chest wall was painted with ChloraPrep solution over its entire extent, and sterile drapes were placed in the usual fashion. The markings, which had been made in the standing position preoperatively, were reoutlined with the patient's knowledge. Time-out procedure was performed. Attention was turned by Dr. Goodwin to the mastectomies. Bilateral inframammary incisions were made and Dr. Goodwin performed mastectomies. This will be dictated under separate cover. Upon completion of the mastectomies, the wounds were copiously irrigated and attention was turned to the right breast. A subpectoral dissection was begun on the right breast, superiorly from the second rib, medially to the sternal fibers, and down to the inframammary fold, elevating the pectoralis major muscle from its insertion. At this point, an 8.0 x 16.0 sheet of AlloDerm was brought into the field and sutured superiorly along the pectoralis major muscle after rehydration. This was carried along the lateral mammary fold and down the side of the breast reconstruction. The left breast tissue removed was 1082 gm, and the right breast approximately 1162 gm. This implant was placed and then sutured with 3-0 Vicryl suture continued along the inframammary fold, completely covering the implant itself. The exact same procedure was carried out symmetrically on the opposite breast. Good symmetry was seen in the sitting position. She had 2 sheets of AlloDerm Contour large perforated acellular dermal matrix placed on each breast and she had tissue expanders of AeroForm 600 mL placed into each breast. These were filled to 500-mL air volume. After the implants were in place, the patient was injected with 10 mL of Isocyanide green dye and the Spy imaging system was brought into the field. The skin flowed to the right and left breasts and the nipple areolar complex, and the entire skin flaps were evaluated and seen to be viable with good blood flow. Two Doni drains were brought out through separate stab wounds laterally. The Smart Infuser pump catheter was inserted medially and into the subpectoral position. Both wounds were closed symmetrically using 3-0 PDS suture on the deep tissue, 3-0 in a deep dermal fashion, and 4-0 in a subcuticular fashion. Both wounds were dressed sterilely with Mastisol and Steri-Strips with a surgical bra and a compression strap. The patient tolerated the procedure well. She was awakened, extubated and transferred to the recovery room in satisfactory condition. The surgical dental assistant was present during the entire portion of the operation and closure. ERNST WILDE M.D. [id number]
== END 2018-01-23 16:25 | disposition home or self-care (01) | DRG 581 ==
LOC: FM/S 12:04
PROVIDERS: ADMIT Surgery Surgical Oncology; ATTEND Surgery Surgical Oncology
PROC: 0HTV0ZZ Resection of Bilateral Breast, Open Approach (ICD-10-PCS; principal; 2018-01-20 14:57)
PROC: 07B50ZX Excision of Right Axillary Lymphatic, Open Approach, Diagnostic (ICD-10-PCS; 2018-01-20 14:57)
PROC: 0HHV0NZ Insertion of Tissue Expander into Bilateral Breast, Open Approach (ICD-10-PCS; 2018-01-20 14:57)
DX: C50.111 Malignant neoplasm of central portion of right female breast (principal); E21.3 Hyperparathyroidism, unspecified; Z90.710 Acquired absence of both cervix and uterus; M62.838 Other muscle spasm
CPT/HCPCS: 36415; 85027; 86803; 87389; 88307-TC; 88331-TC; 88341-TC; 88342-TC; 94760; A9541; J1644

== ENCOUNTER 2018-05-26 14:42 | Emergency (ER) | payer OTHER ==
--- NOTE | 2018-05-26 14:55 | PDOC ---
Attending Attestation - Resident Resident Name: Bill Heltonson - ED Attending Attestation I have performed the following: I have examined & evaluated the patient, The case was reviewed & discussed with the resident, I agree w/resident's findings & plan, Exceptions are as noted - HPI HPI: 05/26/18 15:16 48yo female with hx of breast ca s/p b/l mastectomy in December 2017 presents with nasal congestion and a cough productive yellow sputum since friday. States she was working friday when all her symptoms started. Pt denies sore throat. Denies n/v. States looser stool today. Pt denies f/c. Pt working upstairs and came down for eval. Eating and drinking normally. No night sweats or wt loss. No changes in medications. Not currently on chemo or rads. Dr. Cobian is heme/ onc. - Physicial Exam PE: 05/26/18 15:18 Gen: aaox3, nad heent: TM intact, no effusions or erythema, clear rhinorrhea from nares, posterior pharynx clear neck: supple, no lad, no meningeal signs heart: +s1s2 re lungs: cta b/l abd: soft, nt/nd +bs ext: no c/c/e - Medical Decision Making 05/26/18 14:55 I, Dr. Jordana Yancey, DO, attest that this document has been prepared under my direction and personally reviewed by me in its entirety. I further attest, that it accurately reflects all work, treatment, procedures and medical decision -making performed by me. 05/26/18 15:19 a/p: 48yo female with rhinorrhea and productive cough - yellow sputum -pt is nontoxic in appearance -will send labs -cxr -flu swab -pt has been tolerating PO intake 05/26/18 16:40 atelectasis on cxr no acute pna labs reviewed flu pending pt has been tolerating PO intake in the ED 05/26/18 16:45 flu swab pending pt working upstairs will dc and call with flu results 05/26/18 17:41 flu is negative 05/26/18 17:42 pt called and updated on flu results Heart Score/ECG Review - ECG Intrepretation Comment:: 05/26/18 15:32 sinus at 61, nl axis, nl interval, no acute st/t wave findings
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
[2018-05-26 15:17] VITALS: BP 123/73; PULSE 84; TEMP 98.7; BMI 34.9
[2018-05-26 15:35] LABS: BASO % 0.5 % (0-2.0); EOS % 3.2 % (0-4.5); HEMATOCRIT 37.8 % (32.4-45.2); HEMOGLOBIN 12.3 GM/dl (10.7-15.3); LYMPH % 38.7 % (8-40); MCH 28.2 pg (25.7-33.7); MCHC 32.6 g/dl (32.0-36.0); MEAN CELL VOLUME 86.4 fl (80-96); MEAN PLT VOLUME 8.3 fl (7.5-11.1); MONO % 10.4 % (3.8-10.2); NEUT % 47.2 % (42.8-82.8); PLATELET COUNT 250 K/MM3 (134-434); RBC 4.38 M/mm3 (3.60-5.2); RDW 14.9 % (11.6-15.6); WHITE BLOOD COUNT 5.2 K/mm3 (4.0-10.8)
[2018-05-26 15:42] LABS: ALBUMIN 3.9 g/dl (3.4-5.0); ALK PHOS 72 U/L (45-117); ANION GAP 6 MMOL/L (8-16); BILIRUBIN,TOTAL 0.3 mg/dl (0.2-1); BLOOD UREA NITROGEN 12 mg/dl (7-18); CALCIUM 8.9 mg/dl (8.5-10); CHLORIDE 108 mmol/L (98-107); CO2 23 mmol/L (21-32); CREATININE 0.7 mg/dl (0.55-1.3); GLUCOSE,RANDOM 88 mg/dl (74-106); POTASSIUM 4.4 mmol/L (3.5-5.1); SGOT/AST 22 U/L (15-37); SGPT/ALT 22 U/L (13-61); SODIUM 137 mmol/L (136-145); TOT PROT 7.4 g/dl (6.4-8.2)
--- NOTE | 2018-05-27 10:10 | EKG ---
Test Reason : Blood Pressure : / mmHG Vent. Rate : 061 BPM Atrial Rate : 061 BPM P-R Int : 160 ms QRS Dur : 080 ms QT Int : 454 ms P-R-T Axes : 061 034 047 degrees QTc Int : 457 ms NORMAL SINUS RHYTHM WITH SINUS ARRHYTHMIA NORMAL ECG WHEN COMPARED WITH ECG OF 09-JAN-2018 14:40, NO SIGNIFICANT CHANGE WAS FOUND Confirmed by CHIRAG REEVES, OLAYINKA ([id number]) on 05/27/2018 10:10:20 AM Referred By: DR VELARDE Confirmed By:OLAYINKA BEARD MD
== END 2018-05-26 16:50 | disposition home or self-care (01) ==
LOC: FER 14:42
DX: R42 Dizziness and giddiness (principal); Z85.3 Personal history of malignant neoplasm of breast
CPT/HCPCS: 36415; 71045-TC-FY; 80053; 84703; 85025; 87804; 93005; 99282-25

== ENCOUNTER 2018-07-31 10:20 | Day surgery (SDC) | payer OTHER ==
[2018-07-30 14:37] VITALS: BMI 35.7
[2018-07-31] MEDS ORDERED: GENTAMICIN SO4 80 MG/2 ML VIAL ONE (11:09)
[2018-07-31] MEDS ORDERED: BUPIVACAINE HCL/PF 0.5% (5MG/ML) 10 ML VIAL ONE (11:10)
[2018-07-31] MEDS ORDERED: ceFAZolin SODIUM 1 GM VIAL ONE ×2 (11:10→12:46)
[2018-07-31] MEDS ORDERED: LIDOCAINE 1%-EPI 1:100,000 30 ML MDV IJ ONE (11:10)
[2018-07-31] MEDS ORDERED: LIDOCAINE HCL/PF 2% SDV 5ML VIAL ONE (12:46)
[2018-07-31] MEDS ORDERED: fentaNYL CITRATE 250 MCG/5 ML VIAL ONE (12:46)
[2018-07-31] MEDS ORDERED: PROPOFOL 20 ML ONE ×2 (12:47)
[2018-07-31] MEDS ORDERED: MIDAZOLAM HCL 2 MG/2 ML SINGLE DOSE VIAL ONE (12:47)
[2018-07-31] MEDS ORDERED: BACITRACIN 50,000 UNITS VIAL NR ONE (13:04)
[2018-07-31] MEDS ORDERED: ceFAZolin SODIUM 1 GM VIAL IVPB ONE (13:29)
[2018-07-31] MEDS ORDERED: GENTAMICIN SO4 80 MG/2 ML VIAL IVPB ONE (13:30)
[2018-07-31] MEDS ORDERED: BUPIVACAINE HCL/PF (5 MG/ML) 30 ML VIAL IJ ONE ×2 (13:31)
[2018-07-31] MEDS ORDERED: LIDOCAINE 1%/EPI 1:100000 (20 ML MULTI DOSE VIAL) IJ ONE (13:31)
[2018-07-31] MEDS ORDERED: DEXAMETHASONE SOD PHOSPHATE 4 MG/1 ML VIAL ONE (13:32)
[2018-07-31] MEDS ORDERED: DESFLURANE GAS 240 ML BOTTLE IH ONE (13:33)
[2018-07-31] MEDS ORDERED: IBUPROFEN 800 MG/8 ML IJ IVPB PRN (14:40)
[2018-07-31] MEDS ORDERED: ONDANSETRON 4 MG/2 ML VIAL IVPUSH PRN (14:40)
[2018-07-31] MEDS ORDERED: oxyCODONE HCL 5 MG TABLET PO PRN (14:40)
--- NOTE | 2018-07-31 14:41 | OP ---
Operative Note - Note: Operative Date: 07/31/18 Pre-Operative Diagnosis: Bilateral Breas Absence post mastectomy Operation: Bilateral Breast implant removal,capsulectomy,replacement to implants Implants: Allergan SSF 560 cc Post-Operative Diagnosis: Same as Pre-op Surgeon: Slade Wilde Bulk Plant Agent: Jm Torres Anesthesia: General Specimens Removed: breast skin and tissue,implants Estimated Blood Loss (mls): 20 Operative Report Dictated: Yes
[2018-07-31] MEDS ORDERED: LACTATED RINGERS SOLUTION 1,000 ML IV SCH (14:45)
--- NOTE | 2018-07-31 16:11 | SURG ---
Surgery Warehouse Production Worker Note Warehouse Production Worker: Jm Torres PA-C Date of Service: 07/31/18 Diagnosis: Bilateral Breast Absence post mastectomy Procedure: Bilateral Breast implant removal, capsulectomy, replacement implants I was present for the entirety of the operative procedure. For further detail, please refer to operative report. Visit type - Case Type Case Type: Scheduled - New patient This patient is new to me today: Yes Date on this admission: 07/31/18
[2018-07-31 16:21] VITALS: TEMP 98.2
[2018-07-31] MEDS ORDERED: oxyCODONE HCL 5 MG TABLET ONE (17:11)
[2018-07-31 17:52] VITALS: PULSE 57
[2018-07-31 19:57] VITALS: BP 100/63
--- NOTE | 2018-08-02 09:55 | OP ---
DATE OF OPERATION: 07/31/2018 SURGEON: Ernst Wilde MD PHOTOGRAPHIC TECHNICIAN: Jm Torres PA-C PREOPERATIVE DIAGNOSES: 1. Bilateral absent breast. 2. Bilateral acquired chest wall deformity status post bilateral mastectomy. 3. Asymmetry of reconstructed chest wall. 4. Mechanical complication of breast implant. 5. Reconstruction of chest wall. POSTOPERATIVE DIAGNOSES: 1. Bilateral absent breast. 2. Bilateral acquired chest wall deformity status post bilateral mastectomy. 3. Asymmetry of reconstructed chest wall. 4. Mechanical complication of breast implant. 5. Reconstruction of chest wall. OPERATIVE PROCEDURE: 1. Right breast reconstruction utilizing other technique. 2. Left breast reconstruction utilizing other technique. 3. Capsulectomy, removal and replacement of right breast implant. 4. Capsulectomy, removal and replacement of left breast implant. OPERATIVE PROCEDURE INDICATION: The patient is a 48-year-old black female who had previously undergone bilateral mastectomy for breast cancer. The patient has significant pain and discomfort with her current implants in position and significant asymmetry and malposition. The risks and benefits of surgical versus nonsurgical alternatives as well as material complications of the above procedures were described to the patient on multiple occasions preoperatively, including today in the holding area, where she was marked in the standing position for outline of the reconstructive procedure with other technique and replacement of her breast implants. All questions were asked and answered. She agreed to the planned procedure. OPERATIVE PROCEDURE IN DETAIL: The patient was taken to the operating room and, after induction of general anesthesia in the supine position, both arms were extended and padded, Venodyne boots were placed, and attention was turned to prepping and draping of the chest wall. After ChloraPrep was carried out over the entire extent of the chest wall, sterile drapes were placed in the usual fashion, and attention was turned after timeout. The mastectomy scars were injected with 1% local lidocaine anesthesia along the lateral portions of the incisions and, after allowing topical anesthesia and hemostasis, large blocks of tissue were incised along the lateral portions of the breast, down through the skin to the subcutaneous tissue, down to the deep tissues of the lateral chest wall and medial portion of the breast, lateral portion of the reconstructed breast. This tissue was excised en bloc and sent for pathologic diagnosis on the right breast and then attention was turned to the deeper tissues. Using electrocautery, this incision was deepened down to the capsule of the reconstructed right breast and incised along the course of the incision. The capsule was opened and the implant device removed and sent for pathologic diagnosis. Copious irrigation was carried out using saline and triple antibiotic solution over its entire extent. Hemostasis was meticulously obtained throughout the pocket and attention was turned for the reconstructive procedure. At this point, implants were chosen for reconstruction. A Natrelle Inspira SoftTouch breast implant, style SSF, 560 mL was chosen. This was placed into the right breast pocket using the Feliciano funnel in a no-touch technique. Copious irrigation was again performed using triple antibiotic solution and then a repair of the capsule and subcutaneous tissues over the implant was carried out using 2-0 Vicryl sutures in the deepest tissue and then advancement flaps were carried out to reconstruct the lateral portions of the chest wall after extirpation of the tissue. Using 2-0 Vicryl sutures in the deep tissue for approximation and then 3-0 Biosyn in the deep dermis and subcuticular suture with 3-0 V-Loc suture in a running fashion. At this point, attention was turned to the left breast. The exact same procedure was carried out symmetrically on the opposite side, also placing the same Natrelle Inspira SoftTouch 560 mL implant into position. Good symmetry was seen in the sitting position. All wounds were closed in symmetric fashion. Steri-Strips and Dermabond dressing was placed over the wounds with a Fluff dressing and a Surgi-Bra. She was awakened, extubated, and transferred to the recovery room in satisfactory condition and tolerated procedure well. ERNST WILDE M.D. [id number]
--- NOTE | 2018-08-05 17:13 | PATH ---
Surgical Pathology Report Patient Name: ANNELISE PUTNAM [facility]. Rec. #: [id number] /Age/Gender: 1970 (Age: 48) / F Account: [id number] Location: [facility] SURGICAL Taken: 07/31/2018 Received: 08/03/2018 Reported: 08/05/2018 Physicians: Slade Wilde Specimen(s) Received A: LEFT BREAST IMPLANT B: RIGHT BREAST IMPLANT C: RIGHT BREAST MASTECTOMY SCAR D: LEFT BREAST MASTECTOMY SCAR AND CAPSULE Clinical History History of breast cancer, bilateral mastectomy for cancer Final Diagnosis A. LEFT BREAST IMPLANT, REMOVAL: CONSISTENT WITH BREAST IMPLANT. GROSS EXAMINATION ONLY. B. RIGHT BREAST IMPLANT, REMOVAL: CONSISTENT WITH BREAST IMPLANT. GROSS EXAMINATION ONLY. C. RIGHT BREAST MASTECTOMY SCAR, EXCISION: SEGMENT OF SKIN WITH SCAR. SEPARATE BREAST TISSUE WITH HISTIOCYTIC REACTION INCLUDING FOREIGN BODY TYPE MULTINUCLEATED GIANT CELLS. D. LEFT BREAST MASTECTOMY SCAR, EXCISION: SEGMENT OF SKIN AND SUBJACENT ADIPOSE TISSUE WITH SCAR AND FOREIGN BODY TYPE MULTINUCLEATED GIANT CELLS REACTION. Electronically Signed Jj Asif M.D. Gross Description A. Received in a container, labeled "left breast implant", consists a rubbery breast implant appears drained. It measures 14 x 13 x 6 cm. Gross examination only. B. Received in a container, labeled "right breast implant", consists a rubbery breast implant appears drained. It measures 12.5 x 12.5 x 6 cm. Gross examination only. C. Received in formalin, labeled "right breast mastectomy scar" is one portion of skin and subcutaneous tissue measuring 11 x 5 x 2.5 cm. A linear scar measuring 6 cm is present at the skin surface. Serial sections reveal homogeneous yellow subcutaneous tissue. one portion of fibroadipose tissue and measuring 6 x 4 x 1.5 cm is present serial sections reveal predominantly adipose tissue Rope Making Machine Operator sections are submitted in 2 cassettes. 1: Skin left cutaneous tissue; 2: Separate fibroadipose tissue. D. Received in formalin, labeled "left breast mastectomy scar" is one portion of skin and subcutaneous tissue measuring 9 x 5 x 3 cm. A linear scar measuring 4.5 cm is present at the skin surface. Serial sections reveal homogeneous yellow subcutaneous tissue. Rope Making Machine Operator sections are submitted in 2 cassettes. __ KWCornelius/08/03/2018 [email or web address]/08/03/2018
== END 2018-07-31 19:55 | disposition home or self-care (01) ==
LOC: JASU-SURG 10:20
PROVIDERS: ATTEND Plastic Surgery
PROC: 0HPU0JZ Removal of Synthetic Substitute from Left Breast, Open Approach (ICD-10-PCS; 2018-07-31)
PROC: 0HPT0JZ Removal of Synthetic Substitute from Right Breast, Open Approach (ICD-10-PCS; 2018-07-31)
PROC: 0HUV0JZ Supplement Bilateral Breast with Synthetic Substitute, Open Approach (ICD-10-PCS; 2018-07-31)
PROC: 0HRV07Z Replacement of Bilateral Breast with Autologous Tissue Substitute, Open Approach (ICD-10-PCS; principal; 2018-07-31 13:28)
DX: M95.4 Acquired deformity of chest and rib (principal); N65.1 Disproportion of reconstructed breast; Z90.13 Acquired absence of bilateral breasts and nipples; T85.41XA Breakdown (mechanical) of breast prosthesis and implant, initial encounter; Y83.8 Other surgical procedures as the cause of abnormal reaction of the patient, or of later complication, without mention of misadventure at the time of the procedure; Y92.89 Other specified places as the place of occurrence of the external cause
CPT/HCPCS: 88300-TC; 88305-TC; 94760

== ENCOUNTER 2018-12-22 16:36 | Emergency (ER) | payer OTHER ==
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
[2018-12-22 16:57] VITALS: TEMP 98.3; BMI 34.9
[2018-12-22 18:00] LABS: BASO % 0.4 % (0-2.0); HEMATOCRIT 35.5 % (32.4-45.2); HEMOGLOBIN 11.8 GM/dl (10.7-15.3); LYMPH % 39.1 % (8-40); MCHC 33.2 g/dl (32.0-36.0); MEAN CELL VOLUME 87.6 fl (80-96); MEAN PLT VOLUME 9.2 fl (7.5-11.1); MONO % 7.2 % (3.8-10.2); NEUT % 51.3 % (42.8-82.8); PLATELET COUNT 223 K/MM3 (134-434); RBC 4.05 M/mm3 (3.60-5.2); RDW 14.1 % (11.6-15.6); WHITE BLOOD COUNT 5.9 K/mm3 (4.0-10.8)
[2018-12-22 18:07] LABS: BILIRUBIN,TOTAL 0.5 mg/dl (0.2-1); CALCIUM 8.8 mg/dl (8.5-10); CREATININE 0.7 mg/dl (0.55-1.3); POTASSIUM 4.6 mmol/L (3.5-5.1); TOT PROT 7.1 g/dl (6.4-8.2)
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
[2018-12-22 20:38] VITALS: BP 140/86; PULSE 60
--- NOTE | 2018-12-23 10:25 | EKG ---
Test Reason : Blood Pressure : / mmHG Vent. Rate : 052 BPM Atrial Rate : 052 BPM P-R Int : 158 ms QRS Dur : 084 ms QT Int : 474 ms P-R-T Axes : 050 033 047 degrees QTc Int : 440 ms SINUS BRADYCARDIA OTHERWISE NORMAL ECG WHEN COMPARED WITH ECG OF 26-MAY-2018 15:30, NO SIGNIFICANT CHANGE WAS FOUND Confirmed by OLAYINKA BEARD MD ([id number]) on 12/23/2018 10:25:30 AM Referred By: DR MEJIA Confirmed By:OLAYINKA BEARD MD
== END 2018-12-22 20:38 | disposition home or self-care (01) ==
LOC: FER 16:36
DX: R07.89 Other chest pain (principal); E03.9 Hypothyroidism, unspecified; Z85.3 Personal history of malignant neoplasm of breast; Z88.8 Allergy status to other drugs, medicaments and biological substances
CPT/HCPCS: 36415; 71045-TC-FY; 80053; 84484; 85025; 93005; 99285-25

== ENCOUNTER 2019-03-05 19:03 | Emergency (ER) | payer OTHER ==
[2019-03-05 19:48] VITALS: BP 117/66; PULSE 68; TEMP 98.9; BMI 33.8
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
[2019-03-05] MEDS ORDERED: IBUPROFEN 600 MG TABLET (FP) PO ONE ×2 (20:13→20:20)
== END 2019-03-05 20:25 | disposition home or self-care (01) ==
LOC: FER 19:03
PROC: 0H9GXZZ Drainage of Left Hand Skin, External Approach (ICD-10-PCS; principal; 2019-03-05)
DX: L03.012 Cellulitis of left finger (principal); E03.9 Hypothyroidism, unspecified; Z85.9 Personal history of malignant neoplasm, unspecified; Z88.8 Allergy status to other drugs, medicaments and biological substances
CPT/HCPCS: 87070; 87077; 87186; 87205; 99282-25

== ENCOUNTER 2019-05-27 14:22 | Emergency (ER) | payer OTHER ==
[2019-05-27 14:37] VITALS: BP 117/75; PULSE 66; TEMP 99; BMI 36.6
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
== END 2019-05-27 15:06 | disposition home or self-care (01) ==
LOC: FER 14:22
DX: K21.9 Gastro-esophageal reflux disease without esophagitis (principal); Z88.8 Allergy status to other drugs, medicaments and biological substances; Z85.3 Personal history of malignant neoplasm of breast; E03.9 Hypothyroidism, unspecified; I89.0 Lymphedema, not elsewhere classified
CPT/HCPCS: 87070; 87880; 99282-25

== ENCOUNTER 2019-10-07 07:18 | Emergency (ER) | payer OTHER ==
[2019-10-07 07:28] VITALS: BP 105/75; PULSE 61; TEMP 98.6; BMI 36.2
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
[2019-10-07] MEDS ORDERED: KETOROLAC TROMETHAMINE 30 MG/1 ML VIAL IM ONE (08:02)
[2019-10-07] MEDS ORDERED: KETOROLAC TROMETHAMINE 30 MG/1 ML VIAL ONE (08:04)
[2019-10-07] MEDS ORDERED: ACETAMINOPHEN 500 MG TABLET (FP) PO ONE (08:40)
[2019-10-07] MEDS ORDERED: ACETAMINOPHEN 325 MG TABLET (FP) ONE (08:44)
== END 2019-10-07 09:40 | disposition home or self-care (01) ==
LOC: FER 07:18
PROC: 3E0233Z Introduction of Anti-inflammatory into Muscle, Percutaneous Approach (ICD-10-PCS; principal; 2019-10-07)
DX: S49.91XA Unspecified injury of right shoulder and upper arm, initial encounter (principal)
CPT/HCPCS: 73030-TC-RT-FY; 99284-25

== ENCOUNTER 2021-02-15 22:26 | Emergency (ER) | payer OTHER ==
[2021-02-15] MEDS ORDERED: SULFAMETHOXAZOLE/TRIMETHOPRIM 800MG/160MG D.S. TABLET PO ONE (22:38)
[2021-02-15 22:42] VITALS: BP 112/62; PULSE 65; TEMP 98.6; BMI 35.7
[2021-02-15] MEDS ORDERED: SULFAMETHOXAZOLE/TRIMETHOPRIM 800MG/160MG D.S. TABLET ONE (22:43)
== END 2021-02-15 22:51 | disposition home or self-care (01) ==
LOC: FER 22:26
DX: S67.193A Crushing injury of left middle finger, initial encounter (principal); W23.0XXA Caught, crushed, jammed, or pinched between moving objects, initial encounter
CPT/HCPCS: 99283-25

== ENCOUNTER 2021-02-20 22:12 | Emergency (ER) | payer OTHER ==
[2021-02-20 22:19] VITALS: BP 100/51; PULSE 65; TEMP 99.1; BMI 34.8
[2021-02-20 23:12] LABS: EOS % 3.5 % (0-4.5); HEMATOCRIT 37.3 % (32.4-45.2); HEMOGLOBIN 11.7 GM/dl (10.7-15.3); LYMPH % 34.5 % (8-40); MCH 27.9 pg (25.7-33.7); MCHC 31.3 g/dl (32.0-36.0); MEAN PLT VOLUME 8.4 fl (7.5-11.1); MONO % 9.5 % (3.8-10.2); NEUT % 51.5 % (42.8-82.8); PLATELET COUNT 219 10^3/uL (134-434); RBC 4.19 M/mm3 (3.60-5.2); RDW 14.3 % (11.6-15.6); WHITE BLOOD COUNT 6.2 K/mm3 (4.0-10.8)
[2021-02-20 23:15] LABS: EPITHELIAL CELLS FEW /hpf
[2021-02-20 23:29] LABS: BILIRUBIN,TOTAL 0.2 mg/dl (0.2-1); CALCIUM 8.9 mg/dl (8.5-10); TOT PROT 6.9 g/dl (6.4-8.2)
== END 2021-02-20 23:47 | disposition home or self-care (01) ==
LOC: FER 22:12
DX: R53.1 Weakness (principal)
CPT/HCPCS: 36415; 80053; 81003; 81015; 84443; 85025; 93005; 99284-25

== ENCOUNTER 2024-12-13 16:30 | Emergency (ER) | payer OTHER ==
[2024-12-13 16:39] VITALS: BP 104/70; PULSE 78; RESP 18; TEMP 98.4; BMI 36.6
[2024-12-13] MEDS ORDERED: ACETAMINOPHEN 325 MG TABLET (FP) ONE (17:12)
[2024-12-13] MEDS: ACETAMINOPHEN 325 MG TABLET (FP) PO ONE (17:14)
== END 2024-12-13 17:57 | disposition home or self-care (01) ==
LOC: FER 16:30
DX: M25.561 Pain in right knee (principal)
CPT/HCPCS: 99283-25